=== PATIENT | female | born 1955 | race Caucasian/White ===

== ENCOUNTER 2016-11-13 20:32 | Emergency (ER) | payer OTHER ==
[2016-11-13 20:50] VITALS: BP 137/67
--- NOTE | 2016-11-13 21:20 | UC ---
Skin Complaint HPI - HPI Summary HPI Summary: Patient is complaining of red irritated and swollen labia. some pain with urination - History of Current Complaint Chief Complaint: UCGU Time Seen by Provider: 11/13/16 20:52 Stated Complaint: PERSONAL Hx Obtained From: Patient ?: No Onset/Duration: Sudden Onset, Lasting Days Skin Exposure Onset/Duration: Days Ago Timing: Constant Onset Severity: Mild Current Severity: Moderate Location: Discrete, Other - groin Character: Swelling, Pruritus, Redness Aggravating: Touch Alleviating: Cold - Allergy/Home Medications Allergies/Adverse Reactions: Allergies Allergy/AdvReac Type Severity Reaction Status Date / Time bee stings Allergy Intermediate Swelling Uncoded 11/13/16 20:50 Home Medications: Home Medications Glimepiride [Amaryl] 2 mg PO DAILY 11/13/16 [History Confirmed 11/13/16] Ibuprofen TAB* [Motrin TAB* 800 MG] 800 mg PO DAILY PRN 11/13/16 [History Confirmed 11/13/16] Liraglutide [Victoza] 1.2 ml SC DAILY 11/13/16 [History Confirmed 11/13/16] Losartan Potassium 100 mg PO DAILY 11/13/16 [History Confirmed 11/13/16] Magnesium [Magnesium] 400 mg PO DAILY 11/13/16 [History Confirmed 11/13/16] Review of Systems Constitutional: Negative Skin: Rash - red and itchy Eyes: Negative ENT: Negative Respiratory: Negative Cardiovascular: Negative Gastrointestinal: Negative Genitourinary: Negative Motor: Negative Neurovascular: Negative Musculoskeletal: Negative Neurological: Negative Psychological: Negative All Other Systems Reviewed And Are Negative: Yes PMH/Surg Hx/FS Hx/Imm Hx Previously Healthy: Yes - Surgical History Surgical History: Yes Surgery Procedure, Year, and Place: HYSTERECTOMY--1982 - Family History Known Family History: Positive: Hypertension - Social History Alcohol Use: Rare Substance Use Type: None Smoking Status (MU): Former Smoker When Did the Patient Quit Smoking/Using Tobacco: 2009 Physical Exam Triage Information Reviewed: Yes Appearance: Well-Appearing, Well-Nourished, Pain Distress Vital Signs: Initial Vital Signs Temp 97.4 F 11/13/16 20:41 Pulse 83 11/13/16 20:41 Resp 20 11/13/16 20:41 BP 137/67 11/13/16 20:41 Pulse Ox 98 11/13/16 20:41 Vital Signs Reviewed: Yes Eye Exam: Normal Eyes: Positive: Conjunctiva Clear ENT: Positive: Hearing grossly normal, Pharynx normal, TMs normal Dental Exam: Normal Neck exam: Normal Neck: Positive: Supple, Nontender, No Lymphadenopathy Respiratory Exam: Normal Respiratory: Positive: Chest non-tender, Lungs clear, Normal breath sounds Cardiovascular Exam: Normal Cardiovascular: Positive: RRR, No Murmur, Pulses Normal Abdominal Exam: Normal Abdomen Description: Positive: Nontender, No Organomegaly, Soft Bowel Sounds: Positive: Present Musculoskeletal Exam: Normal Musculoskeletal: Positive: Strength Intact, ROM Intact, No Edema Neurological Exam: Normal Neurological: Positive: Alert, Muscle Tone Normal Psychological Exam: Normal Skin: Positive: rashes - red excoriated groin, Course/Dx - Course Course Of Treatment: hx obtained, exam performed ,meds reviewed, UA has trace leuks, but no urinary symptoms, treated for vaginitis - Differential Diagnoses - Skin Complaint Differential Diagnoses: Abscess - Diagnoses Provider Diagnoses: jennifer of the groin Discharge - Discharge Plan Condition: Stable Disposition: HOME Prescriptions: Fluconazole [Diflucan 150 MG (NF)] 150 mg PO WEEKLY #2 tab Patient Education Materials: Vulvovaginal Candidiasis (ED) Additional Instructions: 1. take the medication as prescribed. 2. Use the coconut oil topically to soothe the area. 3. Follow up with any increase in symptoms
== END 2016-11-13 21:30 | disposition home or self-care (01) ==
LOC: UCCORT 20:32
DX: B37.2 Candidiasis of skin and nail (principal); Z87.891 Personal history of nicotine dependence
CPT/HCPCS: 81003; 99212; G0463

== ENCOUNTER 2017-01-21 20:28 | Emergency (ER) | payer OTHER ==
[2017-01-21 20:47] VITALS: BP 142/68
--- NOTE | 2017-01-21 22:00 | UC ---
Complaint Female HPI - HPI Summary HPI Summary: 61 yo female diabetic with vag d/c and itch x 2 weeks no f/c does not check her blood sugar similar sx about 2 mos ago - History Of Current Complaint Chief Complaint: UCGU Stated Complaint: PERSONAL Time Seen by Provider: 01/21/17 21:37 Hx Obtained From: Patient Onset/Duration: Gradual Onset, Lasting Weeks - 2 Timing: Constant Severity Initially: Mild Severity Currently: Moderate Pain Intensity: 3 Pain Scale Used: 0-10 Numeric Character: Not Applicable Aggravating Factor(s): Nothing Alleviating Factor(s): Nothing Associated Signs And Symptoms: Positive: Vaginal Discharge - Allergies/Home Medications Allergies/Adverse Reactions: Allergies Allergy/AdvReac Type Severity Reaction Status Date / Time bee stings Allergy Intermediate Swelling Uncoded 01/21/17 20:39 PMH/Surg Hx/FS Hx/Imm Hx Previously Healthy: Yes Endocrine History: Diabetes, Dyslipidemia Cardiovascular History: Hypertension - Surgical History Surgical History: Yes Surgery Procedure, Year, and Place: HYSTERECTOMY--1982 - Family History Known Family History: Positive: Hypertension - Social History Alcohol Use: Rare Substance Use Type: None Smoking Status (MU): Former Smoker When Did the Patient Quit Smoking/Using Tobacco: 2009 Review of Systems Constitutional: Negative Skin: Negative Eyes: Negative ENT: Negative Respiratory: Negative Cardiovascular: Negative Gastrointestinal: Negative Genitourinary: Other - vag d/c and itch Motor: Negative Neurovascular: Negative Musculoskeletal: Negative Neurological: Negative Psychological: Negative Is Patient Immunocompromised?: Yes - DM All Other Systems Reviewed And Are Negative: Yes Physical Exam Triage Information Reviewed: Yes Appearance: Well-Appearing, No Pain Distress, Well-Nourished Vital Signs: Initial Vital Signs Temp 97.7 F 01/21/17 20:39 Pulse 79 01/21/17 20:39 Resp 16 01/21/17 20:39 BP 142/68 01/21/17 20:39 Pulse Ox 96 01/21/17 20:39 Eyes: Positive: Conjunctiva Clear ENT: Positive: Hearing grossly normal. Negative: Nasal congestion, Nasal drainage, Tonsillar exudate, Trismus, Muffled/hoarse voice Neck: Positive: Supple, Nontender, No Lymphadenopathy Respiratory: Positive: Lungs clear, Normal breath sounds, No respiratory distress, No accessory muscle use Cardiovascular: Positive: RRR, No Murmur Abdomen Description: Positive: Nontender, No Organomegaly, Other: - ext genitalia; red vagina-curd like d/c, cervix -no d/c Musculoskeletal: Positive: ROM Intact, No Edema Neurological: Positive: Alert Psychological Exam: Normal Skin Exam: Normal Complaint Female Dx - Differential Dx/Diagnosis Provider Diagnoses: yeast vulvo-vaginitis Discharge - Discharge Plan Condition: Stable Disposition: HOME Prescriptions: Fluconazole 150 MG (NF) [Diflucan 150 mg (NF)] 150 mg PO ONCE #2 tab Terconazole Vaginal [Terazol 3] 0.8 % VA DAILY #1 cre Patient Education Materials: Vulvovaginal Candidiasis (ED) Referrals: JEFFRY Gay [Primary Care Provider] - Additional Instructions: epsom salt soaks
== END 2017-01-21 22:23 | disposition home or self-care (01) ==
LOC: UCCORT 20:28
DX: N76.0 Acute vaginitis (principal); E11.9 Type 2 diabetes mellitus without complications; E78.5 Hyperlipidemia, unspecified; I10 Essential (primary) hypertension; Z87.891 Personal history of nicotine dependence; Z91.030 Bee allergy status
CPT/HCPCS: 87480; 87510; 99212; G0463

== ENCOUNTER 2018-09-09 11:45 | Emergency (ER) | payer OTHER ==
[2018-09-09 12:52] VITALS: BP 133/64
--- NOTE | 2018-09-09 13:17 | UC ---
Nausea/Vomiting/Diarrhea HPI - HPI Summary HPI Summary: 63-year-old female presents with 3 day history of watery diarrhea. States was initially having 3-4 episodes of diarrhea which have been progressively lessening over the last 2 days. Has had only one episode so far today. Denies recent travel out of the country, antibiotic use, fever, chills, abdominal pain , nausea, vomiting, blood in stool, or melena. - History of Current Complaint Chief Complaint: UCGI Stated Complaint: DIARRHEA Time Seen by Provider: 09/09/18 13:12 Hx Obtained From: Patient Pain Intensity: 0 - Allergies/Home Medications Allergies/Adverse Reactions: Allergies Allergy/AdvReac Type Severity Reaction Status Date / Time bee stings Allergy Intermediate Swelling Uncoded 09/09/18 12:45 Home Medications: Home Medications Terconazole Vaginal [Terazol 3] 0.8 % VA DAILY PRN 09/09/18 [History Confirmed 09/09/18] PMH/Surg Hx/FS Hx/Imm Hx Endocrine History: Diabetes, Dyslipidemia Cardiovascular History: Hypertension - Surgical History Surgical History: Yes Surgery Procedure, Year, and Place: HYSTERECTOMY--1982 - Family History Known Family History: Positive: Hypertension - Social History Occupation: Employed Full-time Lives: Alone Alcohol Use: Rare Substance Use Type: None Smoking Status (MU): Former Smoker When Did the Patient Quit Smoking/Using Tobacco: 2009 Review of Systems All Other Systems Reviewed And Are Negative: Yes Constitutional: Negative: Fever, Chills Respiratory: Positive: Negative Cardiovascular: Positive: Negative Gastrointestinal: Positive: Diarrhea. Negative: Abdominal Pain, Vomiting, Nausea Genitourinary: Negative: Dysuria, Hematuria, Frequency, Urgency Musculoskeletal: Positive: Negative Neurological: Positive: Negative Is Patient Immunocompromised?: No Physical Exam - Summary Physical Exam Summary: GENERAL APPEARANCE: Well developed, well nourished, alert and cooperative, and appears to be in no acute distress. CARDIAC: Normal S1 and S2. No S3, S4 or murmurs. Rhythm is regular. There is no peripheral edema, cyanosis or pallor. Extremities are warm and well perfused. Capillary refill is less than 2 seconds. Peripheral pulses intact. LUNGS: Clear to auscultation without rales, rhonchi, wheezing or diminished breath sounds. ABDOMEN: Positive bowel sounds. Soft, nondistended, nontender. No guarding or rebound. No masses or hepatosplenomegally. No CVA tenderness. MUSKULOSKELETAL: ROM intact to all extremities. No joint erythema or tenderness. Normal muscular development. Normal gait. SKIN: Skin normal color, texture and turgor with no lesions or eruptions. Triage Information Reviewed: Yes Vital Signs: Initial Vital Signs Temp 97.9 F 09/09/18 12:48 Pulse 72 09/09/18 12:48 Resp 18 09/09/18 12:48 BP 133/64 09/09/18 12:48 Pulse Ox 97 09/09/18 12:48 Vital Signs Reviewed: Yes Naus/Vom/Diarrhea Course/Dx - Course Course Of Treatment: 63-year-old female presents with 3 day history of watery diarrhea. States was initially having 3-4 episodes of diarrhea which have been progressively lessening over the last 2 days. Has had only one episode so far today. Denies recent travel out of the country, antibiotic use, fever, chills, abdominal pain , nausea, vomiting, blood in stool, or melena. Afebrile. Vital signs stable. Exam was overall unremarkable. Recommending conservative treatment for acute diarrhea. She is to follow-up with primary care provider in 3 days if symptoms do not improve. Anticipatory guidance and warning symptoms were reviewed with the patient. Verbalizes understanding and agrees with plan of care. - Differential Dx/Diagnosis Differential Diagnoses - Female: Gastroenteritis (Viral), Gastroenteritis ( Bacterial), Diarrhea Provider Diagnosis: Acute diarrhea Condition At Discharge: Stable Discharge - Sign-Out/Discharge Documenting (check all that apply): Patient Departure All imaging exams completed and their final reports reviewed: No Studies - Discharge Plan Condition: Stable Disposition: HOME Patient Education Materials: Acute Diarrhea (ED) Forms: *Work Release Referrals: Ina Triana PA [Primary Care Provider] - 3 Days Additional Instructions: Acute diarrhea typically resolves on its own without treatment over 2-3 days. The most important consideration with diarrhea is avoiding dehydration. Be sure to drink plenty of fluids. Avoid beverages containing caffeine or artificial sweeteners as these can worsen symptoms. Be sure to eat a well balanced diet. Boiled starches and cereals (potatoes, rice , cream of wheat, oatmeal) as well as food such as crackers, toast, bananas, soups and boiled vegetables are usually recommended if you are having watery diarrhea. Be sure to use good hand hygiene to prevent spreading infection. Use an over the counter pain medication such as acetaminophen (Tylenol) or ibuprofen (Advil, Motrin) according to directions as needed for aches and pains. Return here or follow up with your primary care provider in 3 days if symptoms persist. Seek immediate medical attention in the emergency room if you have fever greater than 100.5 F, have severe abdominal pain, persistent vomiting, blood in your vomit or stool, you become weak or dizzy, or have any worsening of symptoms. - Billing Disposition and Condition Condition: STABLE Disposition: Home
== END 2018-09-09 13:32 | disposition home or self-care (01) ==
LOC: UCCORT 11:45
DX: R19.7 Diarrhea, unspecified (principal); E78.5 Hyperlipidemia, unspecified; I10 Essential (primary) hypertension; Z87.891 Personal history of nicotine dependence; Z91.030 Bee allergy status
CPT/HCPCS: 99211; G0463

== ENCOUNTER 2019-04-28 09:03 | Emergency (ER) | payer OTHER ==
--- OUTSIDE RECORDS SUMMARY | 2019-04-28 09:11 | XMS REPORT | Continuity of Care Document ---
:1955 External Reference #:[id number] Author Name KATE Martin Address [address] [place] [address] Care Team Providers Name Role Phone Jagdish Triana RPA - Physician Care Team Information Safety And Health Manager [phone] Resident Hall Director Problems Description No Information Available Social History Type Date Description Comments Sex Unknown Allergies, Adverse Reactions, Alerts Active Allergies Reaction Severity Comments Date NKDA 04/02/2019 Bee Sting 04/02/2019 Medications Active Medications SIG Qnty Indications Ordering Date Provider Victoza daily Unknown 18mg/3ML Solution Pen-Inject Hydrochlorothiazide 1 by mouth 30tabs Unknown 25mg Tablets every day Metformin HCL 2 by mouth 360tabs Unknown 500mg Tablets twice a day Epipen 2-Lexx use as directed Unknown 0.3mg/0.3ML Solution Auto-Inject Multivitamin Adult 1 by mouth Unknown Tablets every day Aspir-Low 1 by mouth Unknown 81mg Tablets DR every day Magnesium 1 by mouth Unknown 400mg Tablets every day Ibuprofen 1 by mouth Unknown 800mg Tablets three times a day Lipitor 1 by mouth Unknown 10mg Tablets every day Losartan Potassium 1 by mouth Unknown 100mg Tablets every day Lantus 10 units daily Unknown 100Unit/ML Solution History Medications Amoxicillin/Clavulanate 1 by mouth 20tabs J02.9 [place] 02/20/2019 - Potassium twice a day MD Thien 04/01/2019 875-125mg Tablets x 10days Diflucan once 1tabs J02.9 [place] 02/20/2019 - 150mg Tablets MD Thien 04/01/2019 Decadron 8mg by 2tabs J02.9 [place] 02/20/2019 - 4mg Tablets mouth once MD Thien 04/01/2019 Immunizations Description No Information Available Vital Signs Date Vital Result Comment 02/20/2019 5:26pm Heart Rate 88 /min BP Systolic 130 mmHg BP Diastolic 84 mmHg Respiratory Rate 16 /min Body Temperature 98.5 F O2 % BldC Oximetry 96 % room air Results Test Acquired Date Facility Test Result H/L Range Note Laboratory test 02/20/2019 [facility] Strep negative Negative finding Procedures Description No Information Available Medical Devices Description No Information Available Encounters Type Date Location Provider Dx Diagnosis Office Visit 02/20/2019 [facility] KATE Martin J02.9 Acute pharyngitis, 5:06p Walk-in at [place] unspecified Drugs Assessments Date Code Description Provider 02/20/2019 J02.9 Acute pharyngitis, unspecified KATE Martin Plan of Treatment Future Appointment(s):08/15/2019 3:00 pm - Farhat Jefferson M.D. at [facility]02/20/2019 - KATE MartinJ02.9 Acute pharyngitis, unspecifiedNew Medication:Amoxicillin/Clavulanate Potassium 875- 125 mg - 1 by mouth twice a day x 10daysDiflucan 150 mg - onceDecadron 4 mg - 8mg by mouth onceComments:GO TO THE ER FOR ANY WORSENING.FOLLOW UP WITH PRIMARY CARE IN 3-5 DAYS. Functional Status Description No Information Available Mental Status Description No Information Available Referrals Description No Information Available
[2019-04-28 09:28] VITALS: BP 147/71
--- NOTE | 2019-04-28 09:45 | UC ---
Complaint Female HPI - HPI Summary HPI Summary: 64-year-old female presents with complaints of 3-4 weeks of vaginal itching and thick white discharge. States over the past week symptoms have been worsening and states that her vaginal area is becoming sore and inflamed. Occasionally noting some scant blood on toilet paper after wiping. States has had a yeast infection in the past with very similar symptoms. Patient is also complaining of a four-month history of erythematous, dry, cracking skin to her right hand and forearm. States she was seen by dermatology who thought she was having some type of reaction and was prescribed a topical cream but is unsure what she was given. States did note some improvement at first but symptoms never resolved and haven't progressively worsened since stopping the use of the cream. Denies fever, chills, abdominal pain, nausea, vomiting, dysuria, frequency, urgency, hematuria, abnormal vaginal bleeding, changes in soaps, detergents, lotions, medications, or known contact with environmental irritants. - History Of Current Complaint Chief Complaint: UCGeneralIllness Stated Complaint: PERSONAL Time Seen by Provider: 04/28/19 09:30 Hx Obtained From: Patient Pain Intensity: 6 - Allergies/Home Medications Allergies/Adverse Reactions: Allergies Allergy/AdvReac Type Severity Reaction Status Date / Time bee venom protein (honey bee) Allergy Swelling Verified 04/28/19 09:20 Home Medications: Home Medications Aspirin EC TAB* [Ecotrin EC Low Dose 81 MG*] 81 mg PO DAILY 04/28/19 [History Confirmed 04/28/19] Multivitamins/Minerals TAB* [Theragran/minerals TAB*] 1 tab PO DAILY 04/28/19 [ History Confirmed 04/28/19] Telmisartan (NF) [Micardis (NF)] 40 mg PO DAILY 04/28/19 [History Confirmed ] metFORMIN* [Glucophage 1000 MG TAB *] 1,000 mg PO BID 04/28/19 [History Confirmed 04/28/19] PMH/Surg Hx/FS Hx/Imm Hx Endocrine History: Diabetes Cardiovascular History: Hypertension - Surgical History Surgical History: Yes Surgery Procedure, Year, and Place: Hysterectomy, 1982, [place] - Family History Known Family History: Positive: Hypertension - Social History Occupation: Employed Full-time Lives: Alone Alcohol Use: Rare Substance Use Type: None Smoking Status (MU): Former Smoker Type: Cigarettes Length of Time of Smoking/Using Tobacco: >1 PPD x 30 Years (off and on) When Did the Patient Quit Smoking/Using Tobacco: 2009 Review of Systems All Other Systems Reviewed And Are Negative: Yes Constitutional: Negative: Fever, Chills Skin: Positive: Other - See HPI Respiratory: Positive: Negative Cardiovascular: Positive: Negative Gastrointestinal: Negative: Abdominal Pain, Vomiting, Nausea Genitourinary: Positive: Vaginal/Penile Itching, Vaginal/Penile Discharge. Negative: Dysuria, Hematuria, Frequency, Urgency, Abnormal Bleeding Musculoskeletal: Positive: Negative Neurological: Positive: Negative Is Patient Immunocompromised?: No Physical Exam - Summary Physical Exam Summary: GENERAL APPEARANCE: Well developed, well nourished, alert and cooperative, and appears to be in no acute distress. CARDIAC: Normal S1 and S2. No S3, S4 or murmurs. Rhythm is regular. There is no peripheral edema, cyanosis or pallor. Extremities are warm and well perfused. Capillary refill is less than 2 seconds. Peripheral pulses intact. LUNGS: Clear to auscultation without rales, rhonchi, wheezing or diminished breath sounds. ABDOMEN: Positive bowel sounds. Soft, nondistended, nontender. No guarding or rebound. No masses or hepatosplenomegally. GENIOURINARY: Deferred by patient. MUSKULOSKELETAL: ROM intact to all extremities. No joint erythema or tenderness. Normal muscular development. Normal gait. EXTREMITIES: Erythematous, dry, fissured skin to the right palmar and dorsal hand including all fingers with second patch to the right ulnar forearm. SKIN: Skin normal color, texture and turgor. Triage Information Reviewed: Yes Vital Signs: Initial Vital Signs Temp 98.4 F 04/28/19 09:13 Pulse 76 04/28/19 09:13 Resp 18 04/28/19 09:13 BP 147/71 04/28/19 09:13 Pulse Ox 98 04/28/19 09:13 Vital Signs Reviewed: Yes Complaint Female Dx - Course Course Of Treatment: 64-year-old female presents with complaints of 3-4 weeks of vaginal itching and thick white discharge. States over the past week symptoms have been worsening and states that her vaginal area is becoming sore and inflamed. Occasionally noting some scant blood on toilet paper after wiping. States has had a yeast infection in the past with very similar symptoms. Patient is also complaining of a four-month history of erythematous, dry, cracking skin to her right hand and forearm. States she was seen by dermatology who thought she was having some type of reaction and was prescribed a topical cream but is unsure what she was given. States did note some improvement at first but symptoms never resolved and haven't progressively worsened since stopping the use of the cream. Denies fever, chills, abdominal pain, nausea, vomiting, dysuria, frequency, urgency, hematuria, abnormal vaginal bleeding, changes in soaps, detergents, lotions, medications, or known contact with environmental irritants. Afebrile. Hypertensive otherwise vital signs stable. Patient's exam was overall unremarkable except for the erythematous, dry, fissured skin to the right palmar and dorsal hand including all fingers with second patch to the right ulnar forearm. A genitourinary exam was deferred by the patient as she felt fairly confident that her symptoms were yeast infection and she had little concern for other causes. Considering the duration and severity of the patient's symptoms and her underlying diabetes or plan to treat her for a candidal vaginitis with fluconazole 150 mg PO one tablet today then repeat in 3 days. I'll also provide her with a prescription for miconazole cream. We discussed that she could use an applicatorful intravaginally at bedtime or could just use a small amount inside the vagina to provide some relief from symptoms until the fluconazole had time to work. We will also provide her with a prescription for clobetasol cream to be applied twice daily to the affected areas on her hand and forearm for up to 2 weeks. She is to follow-up with her primary care provider within 7 days especially if symptoms are not improving. Anticipatory guidance and warning symptoms are reviewed with the patient. Verbalizes understanding and agrees with plan of care. - Differential Dx/Diagnosis Differential Diagnosis/HQI/PQRI: Urinary Tract Infection Provider Diagnosis: Vulvovaginal candidiasis Discharge ED - Sign-Out/Discharge Documenting (check all that apply): Patient Departure All imaging exams completed and their final reports reviewed: No Studies - Discharge Plan Condition: Stable Disposition: HOME Prescriptions: Clobetasol Propionate [Temovate] 30 gm TP BID #1 cream..g. Fluconazole 150 MG TAB* [Diflucan 150 MG TAB*] 150 mg PO ONCE #2 tablet Miconazole Nitrate [Miconazole 7] 45 gm VG BEDTIME 7 Days #1 cream.[email or web address] Patient Education Materials: Yeast Infection (ED), Dermatitis (ED) Referrals: Ina Triana PA [Primary Care Provider] - 7 Days (Follow up within 7 days especially if symptoms are not improving.) Additional Instructions: Start fluconazole 150 mg 1 tablet today and then repeat again in 3 days. Use the miconazole cream. Insert an applicator full intravaginally at bedtime for 7 days. For the dermatitis on your hand and arm, apply clobetasol cream twice a day for up to 2 weeks. Follow up with your primary care provider within 7 days especially if your symptoms are not improving. Seek immediate medical attention in the emergency room if you develop fever greater than 100.5 F, have severe abdominal pain, persistent vomiting, you are unable to urinate, abnormal vaginal bleeding, or have any worsening of symptoms. - Billing Disposition and Condition Condition: STABLE Disposition: Home
== END 2019-04-28 10:06 | disposition home or self-care (01) ==
LOC: UCCORT 09:03
DX: B37.3 Candidiasis of vulva and vagina (principal); E11.9 Type 2 diabetes mellitus without complications; I10 Essential (primary) hypertension; Z91.030 Bee allergy status; Z79.84 Long term (current) use of oral hypoglycemic drugs; Z87.891 Personal history of nicotine dependence
CPT/HCPCS: 99212; G0463